=== PATIENT | male | born 1960 | race Asian ===

== ENCOUNTER 2016-12-06 10:32 | Outpatient (CLI) | payer OTHER ==
[~2016-12-06 10:32] MED LIST: COZAAR100 MG PO; LEVO0.0218 PO; RYBIX ODT50 MG OR; TRAM50TA PO
[2016-12-06 10:47] LABS: PLATELET COUNT 227 K/uL (142-355)
[2016-12-06 11:10] LABS: POTASSIUM 3.8 mmol/L (3.6-5.2); SODIUM 136 mmol/L (136-145)
== END 2016-12-06 19:06 | disposition home or self-care (01) ==
LOC: LABW 10:32
PROVIDERS: Internal Medicine
DX: E11.9 Type 2 diabetes mellitus without complications (principal); E03.8 Other specified hypothyroidism; Z12.5 Encounter for screening for malignant neoplasm of prostate
CPT/HCPCS: 36415; 80053; 80061; 81000; 82043; 82570; 83036; 84153; 84439; 84443; 85027

== ENCOUNTER 2017-09-15 11:48 | Outpatient (CLI) | payer OTHER ==
[2017-09-15 12:13] LABS: PLATELET COUNT 205 K/uL (142-355)
[2017-09-15 12:44] LABS: POTASSIUM 3.7 mmol/L (3.6-5.2)
== END 2017-09-15 22:06 | disposition home or self-care (01) ==
LOC: LABW 11:48
PROVIDERS: Internal Medicine
DX: I10 Essential (primary) hypertension (principal); E03.8 Other specified hypothyroidism; E11.9 Type 2 diabetes mellitus without complications
CPT/HCPCS: 36415; 80053; 80061; 81000; 83036; 84439; 84443; 85027

== ENCOUNTER 2018-04-27 10:00 | Outpatient (CLI) | payer OTHER ==
[2018-04-27 10:54] LABS: PLATELET COUNT 226 K/uL (142-355)
[2018-04-27 11:23] LABS: POTASSIUM 3.7 mmol/L (3.6-5.2)
== END 2018-04-27 22:19 | disposition home or self-care (01) ==
LOC: LABW 10:00
PROVIDERS: Internal Medicine
DX: E11.9 Type 2 diabetes mellitus without complications (principal); E03.9 Hypothyroidism, unspecified
CPT/HCPCS: 36415; 80053; 80061; 81000; 84439; 84443; 85027

== ENCOUNTER 2018-07-28 08:59 | Outpatient (CLI) | payer OTHER ==
[2018-07-28 09:47] LABS: POTASSIUM 3.7 mmol/L (3.6-5.2)
== END 2018-07-28 22:45 | disposition home or self-care (01) ==
LOC: LABW 08:59
PROVIDERS: Internal Medicine
DX: I10 Essential (primary) hypertension (principal); E11.9 Type 2 diabetes mellitus without complications; E03.9 Hypothyroidism, unspecified; E78.00 Pure hypercholesterolemia, unspecified; Z12.5 Encounter for screening for malignant neoplasm of prostate
CPT/HCPCS: 36415; 80053; 80061; 82043; 82570; 83036; 84153; 84439; 84443

== ENCOUNTER 2019-03-24 13:56 | Outpatient (CLI) | payer OTHER | END 2019-03-24 21:47 | disposition home or self-care (01) | LOC: RAD 13:56 | DX: M25.562 Pain in left knee (principal) ==

== ENCOUNTER 2019-07-05 09:29 | Outpatient (CLI) | payer OTHER ==
[2019-07-05 09:54] LABS: PLATELET COUNT 204 K/uL (142-355)
[2019-07-05 10:12] LABS: POTASSIUM 3.6 mmol/L (3.6-5.2)
== END 2019-07-05 20:48 | disposition home or self-care (01) ==
LOC: LABW 09:29
PROVIDERS: Internal Medicine
DX: E03.8 Other specified hypothyroidism (principal); I10 Essential (primary) hypertension; E11.9 Type 2 diabetes mellitus without complications
CPT/HCPCS: 36415; 80053; 80061; 81000; 82043; 82570; 83036; 84439; 84443; 85027

== ENCOUNTER 2019-12-21 09:18 | Outpatient (CLI) | payer OTHER ==
[2019-12-21 09:51] LABS: PLATELET COUNT 208 K/uL (142-355)
== END 2019-12-21 19:19 | disposition home or self-care (01) ==
LOC: LABW 09:18
PROVIDERS: Internal Medicine
DX: E11.9 Type 2 diabetes mellitus without complications (principal); E03.8 Other specified hypothyroidism
CPT/HCPCS: 36415; 80053; 80061; 81000; 83036; 84439; 84443; 85027

== ENCOUNTER 2020-07-04 09:25 | Outpatient (CLI) | payer OTHER ==
[2020-07-04 10:23] LABS: POTASSIUM 4.3 mmol/L (3.6-5.2)
== END 2020-07-04 21:46 | disposition home or self-care (01) ==
LOC: LABW 09:25
PROVIDERS: ATTEND Internal Medicine
DX: E11.9 Type 2 diabetes mellitus without complications (principal); I10 Essential (primary) hypertension; E03.8 Other specified hypothyroidism; Z12.5 Encounter for screening for malignant neoplasm of prostate; N40.0 Benign prostatic hyperplasia without lower urinary tract symptoms
CPT/HCPCS: 36415; 80053; 80061; 81000; 82043; 83036; 84153; 84439; 84443

== ENCOUNTER 2021-01-04 08:51 | Outpatient (CLI) | payer OTHER ==
[2021-01-04 09:31] LABS: PLATELET COUNT 233 K/uL (142-355)
[2021-01-04 09:37] LABS: POTASSIUM 3.9 mmol/L (3.6-5.2)
== END 2021-01-04 19:07 | disposition home or self-care (01) ==
LOC: LABW 08:51
PROVIDERS: ATTEND Internal Medicine
DX: Z00.00 Encounter for general adult medical examination without abnormal findings (principal); Z12.5 Encounter for screening for malignant neoplasm of prostate; E11.9 Type 2 diabetes mellitus without complications; E03.8 Other specified hypothyroidism; N40.0 Benign prostatic hyperplasia without lower urinary tract symptoms
CPT/HCPCS: 36415; 80053; 80061; 81000; 83036; 84153; 84439; 84443; 85027

== ENCOUNTER 2021-04-26 13:41 | Outpatient (CLI) | payer OTHER | END 2021-04-26 19:15 | disposition home or self-care (01) | LOC: LAB 13:41 | PROVIDERS: ATTEND Internal Medicine | DX: R79.89 Other specified abnormal findings of blood chemistry (principal); E11.9 Type 2 diabetes mellitus without complications | CPT/HCPCS: 84439; 84443 ==

== ENCOUNTER 2021-10-18 12:18 | Outpatient (CLI) | payer OTHER ==
[2021-10-18 13:07] LABS: POTASSIUM 4.4 mmol/L (3.6-5.2)
== END 2021-10-18 19:02 | disposition home or self-care (01) ==
LOC: LAB 12:18
PROVIDERS: ATTEND Internal Medicine
DX: E11.9 Type 2 diabetes mellitus without complications (principal); E03.8 Other specified hypothyroidism
CPT/HCPCS: 80053; 80061; 83036; 84439; 84443

== ENCOUNTER 2022-05-23 07:39 | Outpatient (CLI) | payer OTHER | END 2022-05-23 19:21 | disposition home or self-care (01) | LOC: LABW 07:39 | PROVIDERS: ATTEND Internal Medicine Gastroenterology | DX: K64.0 First degree hemorrhoids (principal) | CPT/HCPCS: 82272 ==

== ENCOUNTER 2022-07-18 14:27 | Outpatient (CLI) | payer OTHER ==
[2022-07-18 15:03] LABS: POTASSIUM 4.4 mmol/L (3.6-5.2)
[2022-07-18 15:58] LABS: PLATELET COUNT 230 K/uL (142-355)
== END 2022-07-18 19:09 ==
LOC: LAB 14:27
PROVIDERS: ATTEND Internal Medicine
DX: E11.9 Type 2 diabetes mellitus without complications (principal); E78.49 Other hyperlipidemia; E03.8 Other specified hypothyroidism; Z12.5 Encounter for screening for malignant neoplasm of prostate; N40.0 Benign prostatic hyperplasia without lower urinary tract symptoms
CPT/HCPCS: 80053; 80061; 81002; 83036; 84153; 84439; 84443; 85027